=== PATIENT | female | born 1995 | race Caucasian/White ===

== ENCOUNTER 2020-10-20 22:30 | Emergency (ER) | payer BC ==
[~2020-10-20] VITALS: Ht 154.9 cm; Wt 52.3 kg
[2020-10-20 22:44] VITALS: BP 118/88
[2020-10-20] MEDS ORDERED: LIDOcaine 1% W/epiNEPHrine 1:200,000 10ml vial IJ ONE (23:45)
[2020-10-20] MEDS ORDERED: TETanus/Pertussis (Acell)/Diphther VAC/PF (Tdap-Adult) 0.5ml syringe IMVAC ONE (23:45)
[2020-10-21] MEDS ORDERED: CLIN-97 PO (00:23)
== END 2020-10-21 00:31 | disposition home or self-care (01) ==
LOC: ER 22:31
DX: S91.312A Laceration without foreign body, left foot, initial encounter (principal); W26.8XXA Contact with other sharp object(s), not elsewhere classified, initial encounter; Y93.89 Activity, other specified; Y92.89 Other specified places as the place of occurrence of the external cause; Y99.8 Other external cause status
CPT/HCPCS: 12001; 73630; 90471; 90715; 99283